=== PATIENT | male | born 1980 | race Caucasian/White ===

== ENCOUNTER 2022-02-25 10:43 | Emergency (ER) | payer OTHER, SELFPAY ==
[2022-02-25 10:50] VITALS: BP 136/84; PULSE 86; RESP 17; TEMP 36.9; O2SAT 98; BMI 96.4
--- NOTE | 2022-02-25 10:54 | ED.RN ---
dr fraga notified of pt arrival ans sx
--- NOTE | 2022-02-25 11:38 | EDS_ITS ---
HPI History of Present Illness Chief Complaint: Neuro S/Sx Informant: patient Onset/Context/Timing Onset: Yesterday Context: Gradual Onset Timing: Continuous Quality: Weakness and numbness Location: Left face Worsened by: Nothing Relieved by: Nothing Narrative Narrative: Patient presents with left facial weakness that began today. Patient states that yesterday he noted some numbness to his tongue and face. Patient states that he had difficulty smiling and raising his eyebrows today. Patient states nothing makes it worse and nothing makes it better. Patient denies any headaches. Patient denies any numbness or weakness of his upper or lower extremities. Patient went to the urgent care today. The nurse practitioner there felt it was a Roman's palsy however he stated that he was slightly off balance with heel-to-toe walking so he was referred to the emergency department. PFSH PFS Home Medications cetirizine [Zyrtec] 10 mg PO DAILY 02/25/22 [History Last Taken Unknown] prednisone 60 mg PO DAILY #15 tablet 02/25/22 [Rx Last Taken Unknown] Allergy/AdvReac Type Severity Reaction Status Date / Time No Known Allergies Allergy Verified 02/25/22 10:47 Surgical History (Updated 02/25/22 @ 11:[address] Amari Mott, DO) History of nasal surgery ROS ROS ED Constitutional Constitutional ED: Denies chills or fever(s) Eyes Eyes: Denies blurry vision or change in vision ENT ENT ED: Denies rhinorrhea or sore throat Cardiovascular Cardiovascular: Denies chest pain or palpitations Respiratory/Chest Respiratory/Chest: Denies cough or dyspnea Gastrointestinal Gastrointestinal: Denies nausea or vomiting Genitourinary Genitourinary ED: Denies dysuria or hematuria Musculoskeletal Musculoskeletal: Denies back pain or neck pain Integumentary Denies abscess or rash Neurologic Neurologic: Reports weakness; Denies headache(s) Allergic/Immunologic Allergic/Immunologic ED: Denies mouth swelling or urticaria EXAM Physical Exam Const Vital Signs: 02/25/22 10:50 Temperature 98.5 F Temperature Source Oral Pulse Rate 86 Respiratory Rate 17 Blood Pressure 136/84 H Blood Pressure Mean 101 Pulse Ox 98 Oxygen Delivery Method Room Air Positive well nourished and well developed General Appearance ED: well developed and NAD HEENT Reports moist mucous membranes Eyes PERRL and EOMs intact bilaterally Neck supple and no JVD Resp normal respiratory effort and clear to auscultation bilaterally Cardio regular rate and regular rhythm GI non-tender Palpation: soft Neuro oriented x3 Neuro Narrative: There is weakness of the left facial muscles. There is weakness of elevation of the left eyebrow as well. There is weakness with closing the left eye. Sensation was slightly diminished over the left cheek with light touch. Strength is 5/5 bilaterally in the upper and lower extr emities. There are no sensory deficits in the upper or lower extremities. [id number] was intact. Sensorium / Orientation: alert Motor Exam: strength 5/5 throughout Psych mental status grossly normal Skin no rashes or lesions noted MDM MDM MDM Narrative Medical decision making narrative: Patient was advised that this is a Roman's palsy. This does not appear to be a stroke in any way. Patient was given a dose of prednisone here. Patient was given a prescription for prednisone. Patient was instructed to get artificial tears. Patient was instructed to tape his left eye closed at nighttime while he sleeps. Patient was instructed to follow-up with his primary care physician in 3 to 5 days for reevaluation. Patient understood and was agreeable with the plan. All questions were answered. Discharge Plan Triage Chief Complaint: Neuro S/Sx ED Provider: Amari Mott Dx/Rx/DC Orders Clinical Impression: Roman's palsy Instructions: ED Roman's Palsy Prescriptions: New prednisone 20 MG tablet 60 mg PO DAILY Qty: 15 RF: 0 No Action cetirizine [Zyrtec] 10 mg Tablet 10 mg PO DAILY RF: 0 Primary Care Provider: [facility] ,Out of Referrals: [facility] Doctor,Out of [Primary Care Provider] - 3-5 Days Disposition Disposition: Home, Self Care
[2022-02-25] MEDS: predniSONE 20 MG Tablet 60 MG PO (12:04)
[2022-02-25 12:07] VITALS: BP 132/78; PULSE 76; RESP 16; O2SAT 98
[2022-02-25 12:09] VITALS: BMI 45.0
== END 2022-02-25 12:16 | disposition home or self-care (01) ==
PROVIDERS: Emergency Provider Emergency Medicine; Visit Provider Emergency Medicine
DX: G51.0 Bell's palsy (principal)
CPT/HCPCS: 99283